=== PATIENT | male | born 1970 | race Caucasian/White ===

== ENCOUNTER 2017-05-18 00:29 | Emergency (ER) | payer BC, MEDICAID ==
[2017-05-18] MEDS ORDERED: MIDAZOLAM HCL 100 ML IV ONE (00:44)
[2017-05-18] MEDS ORDERED: NORMAL SALINE 250 ML IV PRN (00:49)
--- NOTE | 2017-05-18 00:53 | ER Document Report ---
ED General - General Stated Complaint: TROUBLE BREATHING Notes: Patient is a pleasant 47-year-old male who presents with complaint of severe abdominal pain, respiratory distress, heavy bleeding from the rectum. Patient first arrives he is breathing rapidly and unable to answer questions. Patient eventually is able answer some questions and says that he has had severe abdominal pain since this morning and has had large amounts of blood coming from his rectum. He said he did vomit once and there was some blood in his vomit. She denies being on blood thinners. He denies ever having anything like this in the past. Further history is not obtainable as the patient is in distress and unable to answer further questions. Patient was given tranexamic acid by the paramedics in route. TRAVEL OUTSIDE OF THE [place] IN LAST 30 DAYS: No - Related Data Allergies/Adverse Reactions: No Known Allergies Allergy (Verified 05/18/17 00:55) Past Medical History - Social History Smoking Status: Unknown if Ever Smoked Frequency of alcohol use: unknown Drug Abuse: Other - unknown Family History: Other - unknown - Past Medical History Cardiac Medical History: Reports: Hx Hypercholesterolemia, Hx Hypertension Neurological Medical History: Reports: Hx Migraine Traumatic Medical History: Reports: Hx Traumatic Brain Injury - Immunizations Immunizations up to date: Yes Hx Diphtheria, Pertussis, Tetanus Vaccination: Yes Review of Systems - Review of Systems -: Yes ROS unobtainable due to patient's medical condition - Very limited due to patient's distress Physical Exam - Vital signs Vitals: Resp 25 H 05/18/17 00:32 - Notes Notes: General Appearance: Well nourished, alert, cooperative, severe acute distress, severe obvious discomfort. Vitals: reviewed, See vital signs table. Eyes: PERRL, EOMI, Conjuctiva clear Mouth: No decreasd moisture Throat: No tonsillar inflammation, No airway obstruction Neck: Supple, no neck tenderness, No thyromegaly Lungs: No wheezing, No rales, No rhonci, No accessory muscle use, good air exchange bilaterally. Heart: Tachycardiac rate, Regular rythm, No murmur, no rub Abdomen: soft, No rigidity, severe diffuse abdominal tenderness to palpation, some guarding, no rebound, Extremities: strength 5/5 in all extremities, good pulses in all extremities, no swelling or tenderness in the extremities, no edema. Skin: Extremities are cold to touch, diaphoretic, very pale. Neuro: Patient significant distress. Initially he could not answer any questions. Eventually he was able to start answering some questions. I cannot do a full neuro exam due to patient's distress and limited medication with him. Facial function appears symmetric. Course - Re-evaluation Re-evalutation: 05/18/17 00:54 She presents in severe respiratory distress. Is tachycardic in the 140s. Her pressure initially systolically was 130s but quickly systolically went down to 90. Indication with the patient is very limited due to the patient being in severe distress. I did my best to explain to the patient the situation and talk to him about intubation versus pain medication but recommended the patient due to his severe distress and amount of pain . Patient did with intubation. My concern is that the patient could have potential ischemic versus or dissection. This based on the severe abdominal pain radiating to the back as well as heavy bleeding from the rectum. I did review his previous records and do not see any recent history of renal function abnormality. We will send him for a CTA of the abdomen and pelvis and chest. No negative blood has been ordered because the patient is very pale appearing with a large amount of heavy bleeding suggesting that he most likely is very anemic. 05/18/17 02:[address] Lange, linen checker at [facility], who agrees to accept the patient for transfer. 05/18/17 02:41 I have attempted to call the patient's father. I left a voicemail for him. I have not yet heard back. 05/18/17 03:11 She has a very high leukocytosis of 29,000. I suspect this may mainly be demargination however being that he does have the abdominal pain with rectal bleeding I will cover him with Invanz. Currently CT scan shows no evidence of ischemic gut. I did place him on pressors. He has been borderline hypotensive. I think some of the hypotension is related to the sedation medications but I think also the fact that he had large amount of blood loss probably is contributing to it as well. Patient bleeding continues to be controlled for last hour to hour and a half.. This appears that tranexamic acid did help stop the bleeding. We are still waiting for transport for the patient to go to [facility] ([facility] - Vital Signs Vital signs: Temp Pulse Resp BP Pulse Ox 100.3 F 18 91/73 L 100 05/18/17 03:36 05/18/17 03:36 05/18/17 03:36 05/18/17 03:37 - Laboratory Result Diagrams: 05/18/17 00:45 05/18/17 00:45 Laboratory results interpreted by me: 05/18/17 05/18/17 05/18/17 00:45 00:45 00:45 WBC 29.2 H RBC 2.70 L Hgb 8.4 L Hct 25.2 L Abs Neuts (Manual) 20.4 H Abs Lymphs (Manual) 6.1 H Abs Monocytes (Manual) 2.6 H PT 15.8 H Carbon Dioxide 14 L BUN 37 H Creatinine 1.41 H Est GFR (Non-Af Amer) 53 L Glucose 224 H Lactic Acid Calcium 7.8 L Total Protein 5.1 L Albumin 3.0 L Urine Protein Urine Ketones Urine Ascorbic Acid Crossmatch 05/18/17 05/18/17 05/18/17 00:45 01:38 02:20 WBC RBC Hgb Hct Abs Neuts (Manual) Abs Lymphs (Manual) Abs Monocytes (Manual) PT Carbon Dioxide BUN Creatinine Est GFR (Non-Af Amer) Glucose Lactic Acid 3.7 H Calcium Total Protein Albumin Urine Protein 30 H Urine Ketones TRACE H Urine Ascorbic Acid 40 H Crossmatch See Detail - EKG Interpretation by Me Additional EKG results interpreted by me: 05/18/17 03:09 EKG is reviewed and interpreted by me. EKG shows sinus tachycardia with rate of [address] segment elevation or depression. No ischemic T-wave inversions. CT interval, QRS duration within normal range. QTc interval is borderline. Old EKG for comparison is from November 11, 2014. Procedures - Central Line Right Femoral Central line pre-insertion: Sterile PPE donned, Chloraprep applied, Sterile drapes applied Central line lumen type: Triple Anesthetic type: 1% Lidocaine mL's of anesthesia: 3 CM at insertion site: 20 Line secured with sutures: Yes Central line post-insertion: Blood return from lumens, Biopatch applied, Sutured , Sterile dressing applied Number of attempts: 1 Complications: No Notes: 05/18/17 04:33 My initial plan was to place the central and internal jugulars. On ultrasound the patient's internal jugulars they were very collapsed despite him being in Trendelenburg this position. I therefore did look at the femoral veins next. Patient had which larger femoral veins which would be cannulated with less chance of side effect or arterial puncture. I therefore decided to place central line in the right femoral vein. - Intubation Orotracheal Mallampati Classification: Class 1 Blade type: Alejandra Blade size: 3 Equipment used: Glidescope ETT size: 7.5 ETT secured at: Gums ETT secured at (cm): 22 Breath Sounds after Intubation: Equal End tidal CO2 confirmed: Yes Critical Care Note - Critical Care Note Total time excluding time spent on procedures (mins): 45 Comments: Critical care time spent on this patient not including time spent on procedures apartment 45 minutes due to management of her rectal bleeding, hypertension, respiratory distress, management of sedation medications. Discharge - Discharge Clinical Impression: GI bleeding Qualifiers: GI bleed type/associated pathology: unspecified gastrointestinal hemorrhage type Qualified Code(s): K92.2 - Gastrointestinal hemorrhage, unspecified Abdominal pain Qualifiers: Abdominal location: generalized Qualified Code(s): R10.84 - Generalized abdominal pain Leukocytosis Qualifiers: Leukocytosis type: unspecified Qualified Code(s): D72.829 - Elevated white blood cell count, unspecified Condition: Stable Disposition: [facility] Referrals: DWIGHT CARMICHAEL FNP-C [Primary Care Provider] - Follow up as needed
[2017-05-18] MEDS ORDERED: SUCCINYLCHOLINE CHLORIDE INJ 200 MG/10 ML VIAL IV ONE (01:03)
[2017-05-18] MEDS ORDERED: MIDAZOLAM HCL 100 ML IV PRN (01:03)
[2017-05-18] MEDS ORDERED: ETOMIDATE INJ/PF 20 MG/10 ML SDV IV ONE (01:04)
[2017-05-18 01:13] LABS: HEMATOCRIT 25.2 % (37.9-51.0); HEMOGLOBIN 8.4 g/dL (13.5-17.0); MEAN CORPUSCULAR HEMOGLOBIN 30.9 pg (27.0-33.4); MEAN CORPUSCULAR HGB CONC 33.1 g/dL (32.0-36.0); MEAN CORPUSCULAR VOLUME 93 fl (80-97); PLATELET COUNT 292 10^3/uL (150-450); RED CELL DISTRIBUTION WIDTH 13.2 % (11.5-14.0); WHITE BLOOD COUNT 29.2 10^3/uL (4.0-10.5)
[2017-05-18 01:15] LABS: INTERNATIONAL RATION (INR) 1.18; PROTHROMBIN TIME 15.8 SEC (11.4-15.4)
[2017-05-18 01:16] LABS: PARTIAL THROMBOPLASTIN TIME 26.8 SEC (23.5-35.8)
[2017-05-18 01:17] LABS: ALANINE AMINOTRANSFERASE 24 U/L (21-72); ALKALINE PHOSPHATASE 41 U/L (38-126); ANION GAP 18 (5-19); ASPARTATE AMINO TRANSFERASE 57 U/L (17-59); BILIRUBIN,DIRECT 0.1 mg/dL (0.0-0.4); BILIRUBIN,TOTAL 0.3 mg/dL (0.2-1.3); BLOOD UREA NITROGEN 37 mg/dL (7-20); CALCIUM 7.8 mg/dL (8.4-10.2); CARBON DIOXIDE 14 mmol/L (22-30); CHLORIDE 106 mmol/L (98-107); CREATINE KINASE 56 U/L (55-170); GLUCOSE 224 mg/dL (75-110); SODIUM 137.8 mmol/L (137-145); TOTAL PROTEIN 5.1 g/dL (6.3-8.2)
[2017-05-18] MEDS ORDERED: PROPOFOL 100 ML IV PRN (01:19)
[2017-05-18] MEDS ORDERED: PROPOFOL 100 ML IV ONE (01:20)
[2017-05-18] MEDS ORDERED: NORMAL SALINE 1000 ML 1,000 ML IV ONE (01:32)
[2017-05-18] MEDS ORDERED: MIDAZOLAM 2 MG/2 ML INJ ONE ×2 (01:41→02:00)
[2017-05-18 01:47] LABS: ABSOLUTE LYMPHOCYTES# (MANUAL) 6.1 10^3/uL (0.5-4.7); ABSOLUTE MONOCYTES # (MANUAL) 2.6 10^3/uL (0.1-1.4); ABSOLUTE NEUTROPHILS# (MANUAL) 20.4 10^3/uL (1.7-8.2); BAND NEUTROPHILS % (MANUAL) 3 % (3-5); BASOPHILS % (MANUAL) 0 % (0-2); EOSINOPHILS % (MANUAL) 0 % (0-6); LYMPHOCYTES % (MANUAL) 21 % (13-45); MONOCYTES % (MANUAL) 9 % (3-13); SEGMENTED NEUTROPHILS % (MAN) 67 % (42-78); TOTAL CELLS COUNTED 100
[2017-05-18 01:49] LABS: PLATELET COMMENT ADEQUATE; RBC MORPHOLOGY COMMENT NORMO-CYTIC/CHROMIC
--- NOTE | 2017-05-18 01:49 | RADIOLOGY REPORT (SQ) ---
EXAM DESCRIPTION: CTA of the chest, abdomen, and pelvis with contrast CLINICAL HISTORY: hypotension, GI bleed, respiratory distress COMPARISON: None Available. TECHNIQUE: Axial CT images of the chest, abdomen, and pelvis obtained following the uncomplicated intravenous administration of 100 mL Isovue-370. 3-D/MIP reformatted images available. Delayed phase imaging obtained. DLP: 3383.87 mGycm FINDINGS: CTA: Ascending aorta: 2.8 cm. Aortic arch: 2.2 cm Descending thoracic aortic: 1.8 cm. Suprarenal abdominal aorta: 2.2 cm. Infrarenal abdominal aorta: 1.6 cm. There is mild atherosclerotic plaque throughout the thoracic and abdominal aortas. The great vessels have normal anatomic configuration. The celiac, superior mesenteric, and inferior mesenteric arteries are patent without evidence of stenosis. The renal arteries are patent. There is in-line flow from the abdominal aorta into the common iliac arteries. Iliac arteries bifurcate into patent external and internal iliac arteries. Mild nonflow-limiting atherosclerotic plaque. No aortic dissection, aneurysm, or penetrating ulcer identified. CHEST: No abnormalities of visualized thyroid gland. No mediastinal lymphadenopathy. No abnormalities of visualized esophagus. No cardiomegaly or pericardial effusion. No large pulmonary embolus identified. Lung windows demonstrate endotracheal tube with tip at the level of the clavicles. Minimal bibasilar atelectasis. No lobar consolidation, pneumothorax, or pleural effusion. Abdomen: The liver has normal size and density. No intrahepatic mass or biliary dilatation. 2.7 cm left hepatic cyst. No calcified gallstones. Bilateral lipid rich adrenal adenomas, on the right measuring 3.0 cm. On the left measuring 1.0 cm. The kidneys have normal size and contour without evidence of solid mass or hydronephrosis. IVC filter identified. No free intraperitoneal air. The stomach and duodenum have normal course. Pelvis: Prostate is not enlarged. Urinary bladder is unremarkable. No free pelvic fluid or lymphadenopathy. No dilated loops of large or small bowel. No evidence of appendicitis. The visualized lung bases are clear. No destructive bone lesions identified. Minimal degenerative spondylosis of the thoracic spine. IMPRESSION: 1. No acute abnormality of the thoracic or abdominal aorta. No large pulmonary embolus. This exam was performed according to our departmental dose-optimization program, which includes automated exposure control, adjustment of the mA and/or kV according to patient size and/or use of iterative reconstruction technique.
[2017-05-18 02:08] LABS: APPEARANCE,URINE SLIGHTLY-CLOUDY; BILIRUBIN,URINE NEGATIVE (NEGATIVE); COLOR,URINE YELLOW; GLUCOSE, URINE NEGATIVE (NEGATIVE); KETONES,URINE TRACE mg/dL (NEGATIVE); LEUKOCYTE ESTERASE,URINE NEGATIVE (NEGATIVE); NITRITE,URINE NEGATIVE (NEGATIVE); PROTEIN,URINE 30 mg/dL (NEGATIVE); URINE SPECIFIC GRAVITY 1.043; UROBILINOGEN,URINE NEGATIVE mg/dL (<2.0)
[2017-05-18] MEDS ORDERED: DOPAMINE HCL/DEXTROSE 5%-WATER 800 MG/250 ML RTUINJ IV PRN (02:41)
[2017-05-18] MEDS ORDERED: ERTAPENEM SODIUM INJ 1 GM VIAL IV ONE (03:11)
[2017-05-18] MEDS ORDERED: DEXTROSE 5%-WATER 250 ML with NOREPINEPHRINE BITARTRATE 4 MG IV PRN ×2 (03:19)
[2017-05-18] MEDS ORDERED: NOREPINEPHRINE BITARTRATE INJ/PF 4 MG/4 ML SDV IV ONE (03:19)
[2017-05-18 03:40] VITALS: BP 91/73
--- NOTE | 2017-05-18 07:51 | EKG REPORT ---
SEVERITY:- OTHERWISE NORMAL ECG - SINUS TACHYCARDIA : Confirmed by: Candido Marquez MD 18-May-2017 07:49:53
[2017-05-18] MEDS ORDERED: SUCCINYLCHOLINE CHLORIDE INJ 200 MG/10 ML VIAL ONE (10:39)
== END 2017-05-18 03:56 | disposition short-term general hospital (02) ==
LOC: ER 00:29
PROC: 06HN33Z Insertion of Infusion Device into Left Femoral Vein, Percutaneous Approach (ICD-10-PCS; principal; 2017-05-18)
PROC: 0BH17EZ Insertion of Endotracheal Airway into Trachea, Via Natural or Artificial Opening (ICD-10-PCS; 2017-05-18)
DX: K92.2 Gastrointestinal hemorrhage, unspecified (principal); R10.84 Generalized abdominal pain; D72.829 Elevated white blood cell count, unspecified; R06.00 Dyspnea, unspecified; R11.10 Vomiting, unspecified; E78.00 Pure hypercholesterolemia, unspecified; I10 Essential (primary) hypertension; Z87.820 Personal history of traumatic brain injury
CPT/HCPCS: 36556; 31500; 93005; 99291; 96361; 51702; 96365; 86900; 86901; 36415; 36430; 86850; 82550; 83605; 85025; 85610; 85730; 80053; 81001; 84484; 86920; 71275; 74174; 93010; C1751; P9016; J2250 ×2; J1265; J2704; J0330; J7030; J7050